=== PATIENT | male | born 1995 | race Caucasian/White ===

== ENCOUNTER 2020-12-22 13:55 | Emergency (ER) | payer OTHER ==
[~2020-12-22] VITALS: Ht 180.3 cm; Wt 84.1 kg
[2020-12-22 15:57] VITALS: BP 138/91
== END 2020-12-22 16:07 | disposition home or self-care (01) ==
LOC: EMS 14:01
DX: Z71.1 Person with feared health complaint in whom no diagnosis is made (principal)
CPT/HCPCS: 74176; 99284; Z7502